=== PATIENT | male | born 1950 | race Caucasian/White ===

== ENCOUNTER 2017-04-22 07:27 | Emergency (ER) | payer OTHER ==
[~2017-04-22] VITALS: Ht 180.3 cm; Wt 92.1 kg
[~2017-04-22 07:27] MED LIST: BACLOFEN10 M1 PO; IBUPROFEN600 M1 PO; ULTRAM50 M1 PO
[2017-04-22] MEDS ORDERED: LOSARTAN POTASS50 M1 PO (08:01)
[2017-04-22] MEDS ORDERED: CHLORTHALIDONE25 M1 PO (08:02)
--- NOTE | 2017-04-22 08:02 | ED HEADACHE COMPLAINT ---
History of Present Illness General Chief Complaint: Dizziness Stated Complaint: DIZZY,NAUSEA Source: patient Exam Limitations: no limitations Vital Signs & Intake/Output Vital Signs & Intake/Output Vital Signs Date Time Temp Pulse Resp B/P B/P Pulse O2 O2 Flow FiO2 Mean Ox Delivery Rate 04/22 0851 64 18 160/82 97 Room Air 04/22 0732 98.1 78 18 168/95 99 Room Air Allergies Coded Allergies: No Known Allergies (08/11/15) Reconcile Medications Butalb/Acetaminophen/Caffeine (Zebutal 50-325-40 MG Capsule) 50 MG-325 MG-40 MG CAPSULE 1 TAB PO TID PRN HEADACHE Chlorthalidone 25 MG TABLET 1 TAB PO DAILY HEART (Reported) Desloratadine (Clarinex) 5 MG TABLET 1 TAB PO DAILY ALLERGIES Losartan Potassium 50 MG TABLET 1 TAB PO DAILY HEART (Reported) Meloxicam (Mobic) 15 MG TABLET 1 TAB PO DAILY PRN HEADACHE Ondansetron HCl (Zofran) 4 MG TABLET 1 TAB PO Q6-8P PRN NAUSEA Sumatriptan Succinate (Imitrex) 50 MG TABLET 1 TAB PO AD PRN HEADACHE TAKE ONE TAB BY MOUTH, IF NO BETTER, REPEAT IN 30 MINUTES DO NOT EXCEED TWO TABS IN ONE DAY Triage Note: PT TO ED C/O "SHORT SHARP HEADACHES" TO [place] SIDES OF HEAD OFF AND ON "FOR MONTHS". PCP PERSCRIBED FLONES "WHICH HELPED FOR A WHILE" "WHEN I GET THE HEADACHES, I POP MY EARS AND THEY GO AWAY" "I CAN'T ALWAYS POP MY EARS" PT STATES IS ALWAYS LIGHTHEADED. HAS NAUSEA WHEN LIGHTHEADEDNESS "IS MORE INTENSE" DENIES SINUS CONGESTION Triage Nurses Notes Reviewed? yes Onset: Gradual Duration: constant Timing: recent history Quality/Severity: moderate, pressure Severity Numbers: 5 HPI: Patient is a 66-year-old male with a past medical history of hypertension who presents emergency room with a 3-4 month history of intermittent global bandlike pressure headache symptoms that her paroxysmal nature states he was evaluated 3 weeks ago by his primary care doctor where he was advised to take Flonase which improved his symptoms however he stopped taking it last week symptoms recurred unrelieved with the Flonase. Patient has also been taking NSAIDs with minimal relief of symptoms. Patient has associated symptoms of dizziness and mild nausea without emesis Patient does state that he has a remote history of an incidental finding in 1993 of a brain aneurysm where he had this repaired Patient denies any acute onset or thunderclap headache or worse headache of life denies any unilateral temporal headache or tenderness upon palpation of this temporal region, patient denies any fever or chills blurred vision visual field defect, slurred speech facial droop unilateral weakness neck pain or neck stiffness. Patient also complaining of nasal congestion and head congestion Past History Travel History Traveled to [place] past 21 day No Medical History Any Pertinent Medical History? see below for history Neurological: brain aneurism Cardiovascular: hypertension Gastrointestinal: GERD Hepatic: hepatitis C Surgical History Surgical History: BRAIN ANEURYSM REPAIR Psychosocial History What is your primary language Japanese Tobacco Use: Quit >30 days ago ETOH Use: occasional use Illicit Drug Use: denies illicit drug use Family History Hx Contributory? No Review of Systems Review of Systems Constitutional: Reports: no symptoms. Denies: chills, fever. Eyes: Reports: see HPI. Denies: blurred vision. Ears, Nose, Throat, Mouth: Reports: see HPI. Respiratory: Reports: no symptoms. Cardiovascular: Reports: no symptoms. Gastrointestinal/Abdominal: Reports: see HPI, nausea. Denies: abdominal pain. Genitourinary: Reports: no symptoms. Musculoskeletal: Reports: no symptoms. Skin: Reports: no symptoms. Neurological/Psychological: Reports: see HPI, headache. Hematologic/Endocrine: Reports: no symptoms. Endocrine: Reports: no symptoms. Immunologic/Allergic: Reports: no symptoms. All Other Systems: Reviewed and Negative Physical Exam Physical Exam General Appearance: no apparent distress, alert, comfortable Head: atraumatic Eyes: Bilateral: normal appearance, PERRL, EOMI. Ears, Nose, Throat: normal pharynx, hearing grossly normal Neck: normal inspection, supple Respiratory: normal breath sounds, chest non-tender, no respiratory distress Cardiovascular: regular rate/rhythm Gastrointestinal: normal bowel sounds, soft, non-tender Extremities: normal inspection, normal capillary refill Psychiatric: awake, alert, oriented x 3 Cranial Nerves: normal hearing, normal speech, PERRL, CB II-XII INTACT Coordination/Gait: normal finger to nose, normal gait Skin: intact, normal color, warm/dry Core Measures Sepsis Present: No Sepsis Focused Exam Completed? No Progress Differential Diagnosis: carotid dissection, cav sinus thromb, cluster ORTEGA, encephalitis, IC mass/tumor, intracranial Hem., meningitis, migraine ORTEGA, musculoskeletal pain, sinusitis, SSS thrombosis, subarach. Hem., tension ORTEGA, temporal arteritis, TMJ syndrome, viral cephalgia Plan of Care: On initial examination patient is resting comfortably at bedside and has nasal congestion noted no sinus point tenderness, patient does have elevated blood pressure however no concerns of hypertension urgency or emergency, patient does state that he was evaluated 3 weeks ago for routine follow-up and his blood pressure was "normal" at 130/80 Patient's cranial nerves were intact no neurological deficit no concerns of TIA or CVA, no concerns of brain mass or ICH at this time of my differential diagnosis GIANT cell arteritis however patient does not have point tenderness and my suspicion is very low at this time. I had a long extensive conversation with patient follow-up with discharge instructions and plan for neurologist and there is also suspicion of tension migraine headaches Upon discharge patient looks well no apparent distress and will comply discharge instructions and had no questions At this time there was no EMERGENT warranting for imaging of patient's symptoms for his head Departure Departure Disposition: HOME OR SELF CARE Condition: Stable Clinical Impression Primary Impression: Tension headache Secondary Impressions: Hypertension Referrals: Orlando RIOS,Shane Yao MD,Arielle Hayward (PCP/Family) Additional Instructions: As discussed begin the prescription of Clarinex and continue your previously prescribed Flonase for your symptoms, begin a prescription of meloxicam for primary headache relief, begin the prescription of Imitrex for secondary headache relief and a prescription of ZEBUTAL for breakthrough headache relief, begin the prescription of Zofran for nausea, prescription is waiting a [facility] [place]. If no better in one week follow-up with your primary care doctor and neurologist . If symptoms worsen or if YOU develop any new concerning symptom return to emergency room Departure Forms: Customer Survey General Discharge Information Prescriptions: Current Visit Scripts Meloxicam (Mobic) 1 TAB PO DAILY PRN HEADACHE #10 TAB Sumatriptan Succinate (Imitrex) 1 TAB PO AD PRN HEADACHE #9 TAB TAKE ONE TAB BY MOUTH, IF NO BETTER, REPEAT IN 30 MINUTES DO NOT EXCEED TWO TABS IN ONE DAY Butalb/Acetaminophen/Caffeine (Zebutal 50-325-40 MG Capsule) 1 TAB PO TID PRN HEADACHE #15 TAB Desloratadine (Clarinex) 1 TAB PO DAILY #20 TAB Ondansetron HCl (Zofran) 1 TAB PO Q6-8P PRN NAUSEA #10 TAB
[2017-04-22 08:51] VITALS: BP 160/82
[2017-04-22] MEDS ORDERED: MOBIC15 M1 PO (08:52)
[2017-04-22] MEDS ORDERED: CLARINEX5 M1 PO (08:52)
[2017-04-22] MEDS ORDERED: ZEBUTAL 50-3251 EACH PO (08:52)
[2017-04-22] MEDS ORDERED: IMITREX50 M1 PO (08:52)
[2017-04-22] MEDS ORDERED: ZOFRAN4 M2 PO (08:52)
== END 2017-04-22 08:58 ==
LOC: ERH 07:27
DX: G44.209 Tension-type headache, unspecified, not intractable (principal); I10 Essential (primary) hypertension; Z87.891 Personal history of nicotine dependence